=== PATIENT | male | born 1985 | race Caucasian/White ===

== ENCOUNTER 2018-02-25 13:18 | Emergency (ER) | payer BC ==
[2018-02-25 13:51] VITALS: BP 131/98
[2018-02-25] MEDS ORDERED: Tetan/Diph/Pertus SYR(Tdap)* 0.5 ML SYR(BOOSTRIX) use SYR IM ONE (15:36)
--- NOTE | 2018-02-25 15:44 | RAD ---
Indication: Draining wound medial aspect LEFT inguinal level of DIP joint. 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 Comparison: No relevant prior exams available on the [facility] for comparison. Technique: 3 views LEFT third finger. Report: Mild fusiform soft tissue swelling most prominent at the proximal interphalangeal joint. No conspicuous foreign body or subcutaneous emphysema. Negative for soft tissue calcification. Negative for fracture, periosteal reaction, or focal osseous lesions. Normal articular alignment and preserved joint spaces. IMPRESSION: Nonspecific soft tissue swelling without additional radiographic finding.
--- NOTE | 2018-02-25 15:50 | UC ---
Nella Moon Rebecca, scribed for Daiana Rudd MD on 02/25/18 at 1508 . Upper Extremity HPI - HPI Summary HPI Summary: Pt is a 32 y/o M who presents to [facility] c/o a region of swelling and erythema the left middle finger. Sx began 1 week ago and gradually increased in size. 3 days ago, he popped it and he has been having occasional bloody/purulent drainage with odor since then. Negative trauma. On triage, associated pain is severe, ranked 8/10 and he has not taken anything for the pain. Additionally c/ o numbness/tingling in the distal part of the left middle finger. Additionally notes erythematous swelling on the right ring finger for 1 month that has never drained and is not painful. Denies fever, any pain in the nail or regions of swelling on any other joints. Left hand dominant. PMHx gout - on Colchicine and follows up with Miquel; No PMHx or symptoms of STIs. Is not immunocompromised. No chemical exposure at job or through hobbies and does not have any new tattoos. Last Tetanus unknown, was last in college at 2004. Pt's medications reviewed this visit - History of Current Complaint Chief Complaint: UCUpperExtremity Stated Complaint: FINGER COMPLAINT Time Seen by Provider: 02/25/18 14:59 Hx Obtained From: Patient Onset/Duration: Lasting Weeks - 1 week, Still Present Severity Currently: Severe Pain Intensity: 8 Pain Scale Used: 0-10 Numeric Location Of Pain: Is Discrete @ - Left middle finger; Right ring finger Character: Sharp Associated Signs And Symptoms: Positive: Swelling, Redness Related History: Dominant Hand Left - Allergies/Home Medications Allergies/Adverse Reactions: Allergies Allergy/AdvReac Type Severity Reaction Status Date / Time No Known Allergies Allergy Verified 10/11/14 20:08 Home Medications: Home Medications Allopurinol TAB* [Zyloprim 300 MG TAB*] 02/25/18 [History] Colchicine* [Colcrys*] 1 tab PO DAILY 02/25/18 [History Confirmed 02/25/18] PMH/Surg Hx/FS Hx/Imm Hx - Additional Past Medical History Additional PMH: PMHx: Gout, acute arthritis NEGATIVE PMHx: STIs Previously Healthy: Yes Other History Of: Negative For: Anticoagulant Therapy - Surgical History Surgical History: None - Family History Known Family History: Negative: Diabetes - Social History Occupation: Employed Full-time Lives: With Family Alcohol Use: Occasionally Substance Use Type: Marijuana Smoking Status (MU): Heavy Every Day Tobacco Smoker - Immunization History Most Recent Tetanus Shot: unk Review of Systems Constitutional: Negative Skin: Other - Purulent, bloody drainage from the left middle finger with no odor Eyes: Negative ENT: Negative Respiratory: Negative Cardiovascular: Negative Gastrointestinal: Negative Genitourinary: Negative Motor: Negative Neurovascular: Negative Musculoskeletal: Other: - Swelling and erythemetous regions on the left middle and right ring fingers Neurological: Numbness - Numbness/tingling on the left middle finger Psychological: Negative All Other Systems Reviewed And Are Negative: Yes - Comments Additional Review of Systems Comments: NEGATIVE: Fever, nail pain, swelling in any other joints of the body Physical Exam - Summary Physical Exam Summary: Vital Signs Reviewed: Yes A+Ox3, no distress Eyes: Conjunctiva Clear ENT: Hearing grossly normal neck: supple Respiratory: Positive: No respiratory distress, No accessory muscle use Cardiovascular: skin color reflect adequate perfusion Musculoskeletal Exam: + flex/ext elbow, pronate/supinatem ; + flex/ext wrist no pain carpals, metacarpal left middle digit pt with open wound dosruml DIP pt with granulomatous discharege no odor pt with erythema and edema along same finger + flex/ext mcp discomfort with flexion dip, pip no fusiform Neurological: Positive: Alert, ambulatory without difficulty Psychological: Positive: Normal Response To Family Skin: Positive: no rash, no ecchymosis right right finger large, non tender tophus dorsum right ring finger +ROM Triage Information Reviewed: Yes Vital Signs: Initial Vital Signs Temp 98.4 F 02/25/18 13:45 Pulse 81 02/25/18 13:45 Resp 18 02/25/18 13:45 BP 131/98 02/25/18 13:45 Pulse Ox 97 02/25/18 13:45 Diagnostics - Radiology Finger XR Radiology Interpretation Completed By: Radiologist - Nonspecific soft tissue swelling without additional radiographic finding. Dr. Rudd reviewed this radiology report. Re-Evaluation - Re-Evaluation First Eval Re-Evaluation Time: 15:36 Comment: Updated him that he will get a Tetanus, agrees. Upper Extremity Course/Dx - Course Course Of Treatment: Patient medications reviewed this visit. pt with open wound left DIP with granulomatous discharge with edema along finger. suspect tophus gout will cehck imaging, abx. splint. motrin/apap. ortho f/u - appt made for pt with Dr. Murcia 02/26. tdap. elevate. strict return precautions - Differential Dx/Diagnosis Provider Diagnoses: cellulitis. gout Discharge - Sign-Out/Discharge Documenting (check all that apply): Discharge/Admit/Transfer - Discharge - Discharge Plan Condition: Stable Disposition: HOME Prescriptions: Amoxicillin/Clavulanate TAB* [Augmentin TAB 875*] 875 mg PO BID #14 tab Patient Education Materials: Cellulitis (ED), Gout (ED) Forms: *Work Release Referrals: Dequan Zuniga MD [Primary Care Provider] - Ana Murcia MD [Medical Doctor] - 02/26/18 (You have an appointment tomorrow () with Dr. Murcia at the [place] Office at 1 p.m.) Additional Instructions: - leave finger splint in place until you are seen in follow-up tomorrow - take antibiotic as prescribed until gone - Okay to alternate ibuprofen (advil, motrin) and tylenol every 3 hours for pain or fever - You have an appointment with a hand surgeon tomorrow, Dr Murcia, at 1pm on [facility]. Please arrive a few minutes early to complete paperwork - If you develop increased pain, fever, vomiting or other concerns it is recommended you go to the emergency department for further evaluation and treatment - elevate your hand to help with swelling and pain - you were given a tetanus vaccination today. Your arm may be sore tomorrow - this is normal - Billing Disposition and Condition Condition: STABLE Disposition: Home The documentation as recorded by the Nella mendoza Rebecca accurately reflects the service I personally performed and the decisions made by , Daiana Rudd MD.
[2018-02-25 19:02] LABS: ABS Basophils 0 10^3/ul (0-0.2); ABS Eosinophils 0.1 10^3/ul (0-0.6); ABS Lymphocytes 2.4 10^3/ul (1.0-4.8); ABS Monocytes 0.5 10^3/ul (0-0.8); ABS Neutrophils 3.9 10^3/ul (1.5-7.7); ABS Nucleated RBC 0 10^3/ul; Eosinophil % 1.1 % (0-6); Hematocrit 45 % (42-52); Hemoglobin 15.4 g/dl (14.0-18.0); Lymphocyte % 34.8 % (25-47); Mean Corpuscular HGB Conc 34 g/dl (31-36); Mean Corpuscular Hemoglobin 29 pg (27-31); Mean Corpuscular Volume 85 fL (80-94); Mean Platelet Volume 8.4 um3 (7.4-10.4); Nucleated Red Blood Cells % 0.1; Platelet Count 282 10^3/ul (150-450); Red Blood Count 5.35 10^6/ul (4.00-5.40); Red Cell Distribution Width 15 % (10.5-15); White Blood Count 6.9 10^3/ul (3.5-10.8)
[2018-02-25 19:19] LABS: EGFR Non-African American 109.7 (>60); Uric Acid 10.4 mg/dL (4.4-7.6)
--- NOTE | 2018-02-26 11:10 | PN ---
Progress Note - Progress Note Date of Service: 02/26/18 Note: wbc normal. uric acid is high. patient should be following up with ortho per note. can call and tell patient that uric acid is high so could be gout causing symptoms. <Iliana Mendez - Last Filed: 02/26/18 11:09> Attestation Statement User Type: Provider - I was available for consult. The patient was not presented to me. -Darcy <Daiana Rudd - Last Filed: 02/26/18 13:42>
== END 2018-02-25 15:50 | disposition home or self-care (01) ==
LOC: UCEAST 13:18
DX: L03.012 Cellulitis of left finger (principal); M10.9 Gout, unspecified; M19.90 Unspecified osteoarthritis, unspecified site; F17.210 Nicotine dependence, cigarettes, uncomplicated
CPT/HCPCS: 36415; 73140; 80053; 84550; 85025; 87070; 87205; 90471; 90715; 99213; G0463

== ENCOUNTER 2018-03-10 08:34 | Day surgery (SDC) | payer BC ==
--- NOTE | 2018-03-04 21:43 | HP ---
PREOPERATIVE HISTORY AND PHYSICAL: DATE OF ADMISSION: 03/10/18 [facility] ATTENDING SURGEON: Ana Murcia MD * (DICTATED BY JAREK MORENO) CHIEF COMPLAINT: Bilateral middle finger pain. 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 He complains of a lump on his left middle finger at the DIP flexion crease and on the right middle finger at the dorsal aspect of the PIP joint. He has had a history of gout since age 16. He takes allopurinol, but has been having a flare-up of the gout and is on colchicine now. He regularly has these flare-ups; however, he has been able to continue working. This one has been going on for about a month. He denies any injury. Denies any paresthesias or numbness. PAST MEDICAL HISTORY: Gout and depression. PAST SURGICAL HISTORY: Left hand percutaneous pinning. He had no complications with anesthesia. CURRENT MEDICATIONS: 1. Colchicine 0.6 mg by mouth daily. 2. Allopurinol when not taking the colchicine. 3. Zoloft 50 mg daily. 4. Tramadol as needed for pain. 5. Lorazepam as needed for anxiety. ALLERGIES: No known drug allergies. FAMILY HISTORY: Noncontributory. 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 He smokes 1 pack of cigarettes per day and has for 15 years. He drinks alcohol twice a week. He denies any illicit drug use. He lives with his spouse. REVIEW OF SYSTEMS: Constitutional: Negative for recent hospitalization, fevers , chills, night sweats or weight loss. Head: Negative for headaches, lightheadedness or balance problems. Cardiovascular: Negative for chest or arm pain with exertion, history of heart attack, heart murmur, heart palpitations, high blood pressure, embolism or deep vein thrombosis. Respiratory: Negative for chronic cough, shortness of breath with exertion, asthma or COPD. Gastrointestinal: Negative for heartburn, nausea, vomiting, diarrhea, constipation or GERD. Genitourinary: Negative for nighttime urination, frequency of urination, urinary tract infections or kidney problems. Musculoskeletal: Negative for chronic back or neck pain. Negative for recent fractures. Skin: Negative for rashes, lesions, lumps or sores. Neurologic: Negative for seizure, stroke, epilepsy, depression or anxiety. Endocrine: Negative for diabetes or thyroid problems. Hematology: Negative for easy bleeding, bruising or anemia. PHYSICAL EXAMINATION GENERAL: He is a well-developed, well-nourished male, in no acute distress at rest. He is alert and oriented x3, with appropriate mood and affect. VITAL SIGNS: He is 5 feet 9 inches, 217 pounds. Blood pressure 118/70, pulse 72, respirations 18, temperature 97.3. HEENT: Normocephalic, atraumatic. Hearing and vision are grossly intact. NECK: His trachea is midline. RESPIRATORY: Lungs are clear to auscultation bilaterally. No wheezes, rales or rhonchi. CARDIOVASCULAR: Regular rate and rhythm. No murmurs, rubs or gallops. Normal S1, S2. ABDOMEN: Soft, nondistended, nontender. Normal bowel sounds. EXTREMITIES: Exam of the bilateral middle fingers, he had a large gouty tophi in the dorsal aspect of the PIP joint line of the right middle finger and a small one that is ruptured through the skin at the DIP flexion crease of the left middle finger. He has got normal range of motion with right finger in flexion and extension, but he is limited in flexion with left middle finger. He can fully extend that. Other fingers have normal range of motion. No erythema. He has normal wrist motion. Neurovascular function is intact. GAIT: He ambulates with a nonantalgic gait. IMAGING: X-rays of bilateral hands show no bony abnormality. IMPRESSION: Gouty tophi of bilateral middle fingers. PLAN: The patient is to undergo surgical excision of gouty tophi, bilateral middle fingers by Dr. Murcia on 03/10/18. The risks, benefits and postoperative course were discussed with the patient at length and he would like to proceed. All of his questions were answered to his full satisfaction. He will follow up in the office postoperatively. JAREK MORENO [id number]/[facility] #: [id number] MTDD
[~2018-03-10 08:34] MED LIST: Buffered Lidocaine 0.9% SYRIN* 5 ML/SYR SYRINGE INTRADERM ONE
[2018-03-10] MEDS ORDERED: Lidocaine 1% INJ* 10 MG/ML 30 ML SDV ONE (11:57)
[2018-03-10] MEDS ORDERED: Midazolam* 1 MG/ML 2 ML VIAL (2 MG) ONE (12:10)
[2018-03-10] MEDS ORDERED: fentaNYL* 50 MCG/ML 2 ML VIAL (100 MCG VIAL) ONE (12:10)
[2018-03-10] MEDS ORDERED: Propofol* 10 MG/ML 20 ML BTL IV PUSH ONE ×2 (12:11→12:41)
[2018-03-10] MEDS ORDERED: Ketorolac INJ* 30 MG/ML 1 ML VIAL IV PRN (12:54)
[2018-03-10] MEDS ORDERED: Naloxone* 0.4 MG/ML 1 ML VIAL IV PRN (12:54)
[2018-03-10] MEDS ORDERED: fentaNYL* 50 MCG/ML 2 ML VIAL (100 MCG VIAL) IV PRN (12:54)
[2018-03-10] MEDS ORDERED: Ondansetron ODT TAB* 4 MG PO PRN (12:54)
[2018-03-10 13:48] VITALS: BP 124/87
--- NOTE | 2018-03-11 07:34 | OP ---
DATE OF OPERATION: 03/10/18 - [facility] DATE OF : 83 SURGEON: Ana Murcia MD TOMB MAKER HELPER: JAREK Guidry ANESTHESIA: Local MAC. PRE-OP DIAGNOSIS: Bilateral long finger gouty tophus. POST-OP DIAGNOSIS: Bilateral long finger gouty tophus. OPERATIVE PROCEDURE: Removal of bilateral long finger gouty tophus. ESTIMATED BLOOD LOSS: Zero. TOURNIQUET TIME: 15 minutes on each side. INDICATIONS FOR PROCEDURE: Harshal is a 32-year-old male who has severe gout with large gouty tophus on the dorsal aspect of his right middle finger PIP joint and at the volar aspect of his DIP flexion crease of the left middle finger. He presents for removal of these gouty tophi. DESCRIPTION OF PROCEDURE: The patient was brought to the operating room, was given a sedation anesthetic and a bilateral digital block of the middle fingers with 1% lidocaine, 10 cc each side. The skin of both hands and forearms were prepped and draped in the usual sterile fashion. The right hand and forearm were exsanguinated and the tourniquet elevated to 250 mmHg. A longitudinal incision was made over the mass on the dorsal aspect of the PIP joint. We carefully dissected the capsule surrounding the gouty tophus from the skin and then as much as of the gouty tophus was removed as possible from the dorsal aspect of the PIP joint and the extensor tendon. The wound was then copiously irrigated with saline. The tendon had some defect due to the invasion of the gouty tophus. The skin edges were reapproximated with 4-0 nylon suture. The wound was dressed with Xeroform, 4x4, Webril, and Coban. The tourniquet was released and then the left hand tourniquet was elevated. There was a sinus tract draining fluid at the DIP flexion crease on the left middle finger. The sinus tract was excised with an ellipse of skin and then cultures were obtained. There was additionally gouty tophus in this wound and it was debrided with a rongeur. The flexor tendon was intact, but had some defect due to the invasion of the gouty tophus. The wound was copiously irrigated with saline and the skin edges reapproximated with 4-0 nylon suture. The wound was dressed with Xeroform, 4x4, Webril, and Coban. The patient tolerated the procedure well, was brought to the recovery room in good condition. [id number]/[facility] #: [id number] [facility]
== END 2018-03-10 14:03 | disposition home or self-care (01) ==
LOC: OREAST 08:34
PROVIDERS: ATTEND Orthopaedic Surgery
DX: M1A.9XX1 Chronic gout, unspecified, with tophus (tophi) (principal); L98.8 Other specified disorders of the skin and subcutaneous tissue; F17.210 Nicotine dependence, cigarettes, uncomplicated; F41.8 Other specified anxiety disorders
CPT/HCPCS: 87070; 87073; 87205; 88304; J2250; J2704; J3010